=== PATIENT | male | born 1955 | race Caucasian/White ===

== ENCOUNTER 2020-07-14 17:21 | Day surgery (SDC) | payer OTHER ==
[2020-07-14 06:41] VITALS: BMI 27.3
[2020-07-14] MEDS: SENNOSIDES/DOCUSATE COMBO (SENNA PLUS) TABLET (UD) PO SCH ×2 (12:37→21:31)
[2020-07-14] MEDS: MULTIVITAMINS (DAILY MVI) TABLET (FP) PO SCH (12:38)
[2020-07-14] MEDS: PANTOPRAZOLE 40 MG TABLET PO SCH (12:38)
[2020-07-14] MEDS: CEFAZOLIN 2 GM/D5W 2 GM/50 ML ML IVPB SCH (16:13)
[~2020-07-14 17:21] MED LIST: ACETAMINOPHEN 1000 MG/100 ML VIAL (NON FORMULARY) IVPB ONE; ACETAMINOPHEN INJECTION 100 ML IVPB ONE; BUPIVACAINE LIPOSOME/PF (EXPAREL) 266 MG/20 ML VIAL ONE; CEFAZOLIN 2 GM in DEXTROSE 5%-WATER - 50 ML IVPB ONE; CELECOXIB 200 MG CAPSULE ONE; CELECOXIB 200 MG CAPSULE PO ONE; GELATIN, ABSORBABLE 100 EACH SPONGE TP ONE; LACTATED RINGERS SOLUTION 1,000 ML IV SCH; MAG HYDROX/AL HYDROX/SIMETH 30 ML UNIT-DOSE CUP PO PRN; MAGNESIUM HYDROX 2400MG/30ML ORAL SUSPENSION 30 ML CUP PO PRN; MIDAZOLAM HCL 2 MG/2 ML SINGLE DOSE VIAL ONE; ONDANSETRON 4 MG/2 ML VIAL IVPUSH PRN; PROPOFOL 20 ML ONE; SODIUM CHLORIDE 0.9% P/F 10 ML VIAL IJ ONE; THROMBIN (BOVINE) 5,000 UNIT VIAL TP ONE; THROMBIN (RECOMBINANT) 5,000 UNIT VIAL TP ONE; TRANEXAMIC ACID 1000 MG/10 ML VIAL IVPUSH ONE; TRANEXAMIC ACID 1000 MG/10 ML VIAL ONE; VANCOMYCIN 1,000 MG VIAL (RESTRICTED TO ID ONLY) IVPB ONE; VANCOMYCIN 1,000 MG VIAL (RESTRICTED TO ID ONLY) ONE; ceFAZolin SODIUM 1 GM VIAL ONE; oxyCODONE HCL 5 MG TABLET PO PRN; traMADol HCL 50 MG TABLET PO PRN
[2020-07-14] MEDS: TAMSULOSIN HCL 0.4 MG CAP PO SCH (17:58)
[2020-07-14] MEDS: ACETAMINOPHEN 325 MG TABLET (FP) PO SCH (17:59)
[2020-07-14] MEDS: oxyCODONE HCL 5 MG TABLET PO PRN (19:14)
[2020-07-15] MEDS: CEFAZOLIN 2 GM/D5W 2 GM/50 ML ML IVPB SCH
[2020-07-15] MEDS: oxyCODONE HCL 5 MG TABLET PO PRN (03:22)
[2020-07-15] MEDS: ACETAMINOPHEN 325 MG TABLET (FP) PO SCH ×4 (06:06→18:43)
[2020-07-15 07:59] LABS: HEMATOCRIT 32.3 % (35.4-49); MCH 31.5 pg (25.7-33.7); MCHC 33.9 g/dl (32.0-35.9); MEAN CELL VOLUME 92.7 fl (80-96); PLATELET COUNT 181 K/MM3 (134-434); RBC 3.48 M/mm3 (4.00-5.60); RDW 12.2 % (11.9-15.9)
[2020-07-15 08:19] LABS: CREATININE 0.7 mg/dl (0.55-1.3)
[2020-07-15 08:23] LABS: CALCIUM 8.3 mg/dl (8.5-10)
[2020-07-15] MEDS: MULTIVITAMINS (DAILY MVI) TABLET (FP) PO SCH (09:10)
[2020-07-15] MEDS: ASPIRIN 325 MG TABLET PO SCH (09:10)
[2020-07-15] MEDS: PANTOPRAZOLE 40 MG TABLET PO SCH (09:10)
[2020-07-15] MEDS: SENNOSIDES/DOCUSATE COMBO (SENNA PLUS) TABLET (UD) PO SCH ×2 (09:10→21:41)
[2020-07-15] MEDS: TAMSULOSIN HCL 0.4 MG CAP PO SCH (18:43)
[2020-07-15] MEDS ORDERED: LOCK ITEM NR ONE (23:21)
[2020-07-16] MEDS: ACETAMINOPHEN 325 MG TABLET (FP) PO SCH ×3 (00:48→12:05)
[2020-07-16 07:56] LABS: HEMATOCRIT 31.3 % (35.4-49); HEMOGLOBIN 10.5 GM/dl (11.7-16.9); MCH 30.9 pg (25.7-33.7); MCHC 33.4 g/dl (32.0-35.9); MEAN CELL VOLUME 92.3 fl (80-96); MEAN PLT VOLUME 7.2 fl (7.5-11.1); PLATELET COUNT 194 K/MM3 (134-434); RBC 3.39 M/mm3 (4.00-5.60); RDW 12.5 % (11.9-15.9); WHITE BLOOD COUNT 11.9 K/mm3 (4.0-10.8)
[2020-07-16] MEDS: ASPIRIN 325 MG TABLET PO SCH (08:15)
[2020-07-16] MEDS: PANTOPRAZOLE 40 MG TABLET PO SCH (09:09)
[2020-07-16] MEDS: SENNOSIDES/DOCUSATE COMBO (SENNA PLUS) TABLET (UD) PO SCH (09:09)
[2020-07-16] MEDS: MULTIVITAMINS (DAILY MVI) TABLET (FP) PO SCH (09:09)
[2020-07-16 09:30] VITALS: BP 106/56; PULSE 96; TEMP 98.6
== END 2020-07-16 13:10 | disposition home health service (06) ==
LOC: FASUSAT 17:21 → FM/S 17:21 → FASUSAT 07-16 13:10
PROVIDERS: ATTEND Orthopaedic Surgery
PROC: 8E0YXBZ Computer Assisted Procedure of Lower Extremity (ICD-10-PCS; 2020-07-14)
PROC: 8E0Y0CZ Robotic Assisted Procedure of Lower Extremity, Open Approach (ICD-10-PCS; 2020-07-14)
PROC: 0SRD0J9 Replacement of Left Knee Joint with Synthetic Substitute, Cemented, Open Approach (ICD-10-PCS; principal; 2020-07-14 09:10)
DX: M17.12 Unilateral primary osteoarthritis, left knee (principal)
CPT/HCPCS: 20985; 27447; C1776; S2900; 36415; 73560-TC-LT-FY; 80048; 85027; 88305-TC; 88311-TC; 94760; 97010-GP; 97116-GP; 97162-GP; J0131